=== PATIENT | female | born 1960 | race Caucasian/White ===

== ENCOUNTER → 2017-01-31 | Outpatient (CLI) | payer OTHER ==
[~2017-01-31] MED LIST: ASACOL HD800 MG PO; CLARITIN D 12 H1 TAB PO; FLONASE 50 MCG/16 GM NOSE; FLUOXETINE HCL10 MG PO; MERCAPTOPURINE50 MG PO; PROTONIX40 MG PO; PROVENTIL OR V6.7 GM INH; PROZAC20 MG PO; VITAMIN B COMP1 EACH PO; VITAMIN E400 UNI2 PO
== END | disposition disaster alternative care site (69) ==
LOC: GRAD 14:27
DX: R51 Headache (principal); I82.90 Acute embolism and thrombosis of unspecified vein; G93.89 Other specified disorders of brain